=== PATIENT | female | born 1990 | race African-American/Black ===

== ENCOUNTER 2017-07-26 21:36 | Emergency (ER) | payer SELFPAY ==
[2017-07-26 21:48] VITALS: BMI 43.0
--- NOTE | 2017-07-26 22:37 | PDOC ---
History of Present Illness - General Chief Complaint: Vaginal Bleeding Stated Complaint: CRAMPS Time Seen by Provider: 07/26/17 22:05 - History of Present Illness Initial Comments: 07/26/17 22:38 27F [id number] last day of menstrual period 06/29/17 presents with bilateral lower abdominal cramping pain 7/10 radiating to the groinvaginal bleeding since this morning, "not enough to fill a pad" present mostly when she wipes but increasing in volume. Used [id number] tests on Sunday and Sunday , both positive. Usually gets OBGYN care at [facility] at [facility]. Not on any contraceptive. 2 living children vaginal births, 1 ectopic 3 miscarriages 1 voluntary 07/26/17 23:25 07/26/17 23:40 07/26/17 23:55 Past History - Past Medical History Allergies/Adverse Reactions: Allergies Allergy/AdvReac Type Severity Reaction Status Date / Time No Known Allergies Allergy Verified 07/26/17 21:48 Home Medications: Ambulatory Orders NK [No Known Home Medication] 07/26/17 Asthma: Yes ( Childhood, resolved with puberty) COPD: No - Reproductive History (#): 5 Para: 2 Ectopic : Yes - Suicide/Smoking/Psychosocial Hx Smoking Status: No Smoking History: Never smoked Have you smoked in the past 12 months: No Number of Cigarettes Smoked Daily: 0 Information on smoking cessation initiated: No Hx Alcohol Use: No Drug/Substance Use Hx: No Substance Use Type: None Review of Systems - Review of Systems Able to Perform ROS?: Yes Is the patient limited Qatari proficient: No Constitutional: No: Symptoms Reported HEENTM: No: Symptoms Reported Respiratory: No: Symptoms reported Cardiac (ROS): No: Symptoms Reported ABD/GI: Yes: See HPI, Abdominal cramping. No: Abdominal Distended, Rectal Bleeding, Vomiting, Indigestion : No: Symptoms Reported Musculoskeletal: No: Symptoms Reported Integumentary: No: Symptoms Reported Neurological: No: Symptoms reported Endocrine: No: Symptoms Reported *Physical Exam - Vital Signs Last Vital Signs Temp Pulse Resp BP Pulse Ox 98.7 F 118 H 18 125/76 100 07/26/17 21:45 07/26/17 21:45 07/26/17 21:45 07/26/17 21:45 07/26/17 21:45 - Physical Exam General Appearance: Yes: Nourished, Appropriately Dressed. No: Apparent Distress HEENT: positive: EOMI, RAUL, Normal ENT Inspection Neck: negative: Tender Respiratory/Chest: positive: Lungs Clear, Normal Breath Sounds. negative: Chest Tender Cardiovascular: positive: Regular Rhythm, S1, S2, Tachycardia Gastrointestinal/Abdominal: positive: Normal Bowel Sounds, Tender, Flat, Soft Extremity: positive: Normal Capillary Refill Neurologic: positive: card cutter II-XII NML intact, Fully Oriented, Alert, Normal Mood/ Affect, Normal Response, Motor Strength 11/24 ED Treatment Course - LABORATORY CBC & Chemistry Diagram: 07/26/17 22:50 07/26/17 22:50 Medical Decision Making - Medical Decision Making 07/26/17 23:39 29 3weeks and 2 days . Will evaluate betaHCG and TVUS. Basic labs. 07/26/17 23:51 Negative beta hcg wehite count 15.2 TVUS for evaluation of pain/bleed -> negative for product of conception, masses. No ovarian torsion. Normal US 07/27/17 01:13 Patient now pain-free. This was likely a Complete . Patient advised and ok to be discharged *DC/Admit/Observation/Transfer Diagnosis at time of Disposition: Complete - Discharge Dispostion Disposition: HOME Admit: No - Referrals Referrals: Sheila Kamara MD [Primary Care Provider] - - Patient Instructions Printed Discharge Instructions: DI for Miscarriage, Dealing With Miscarriage Additional Instructions: Please follow up with your OBGYN at the [facility] within 3-4 days. Come back to the ER for any new, worsening or concerning symptom. - Post Discharge Activity
[2017-07-26 22:55] LABS: BASO % 0.7 % (0-2.0); EOS % 0.5 % (0-4.5); HEMATOCRIT 40.4 % (32.4-45.2); HEMOGLOBIN 13.2 GM/dL (10.7-15.3); LYMPH % 15.1 % (8-40); MCH 29.8 pg (25.7-33.7); MCHC 32.8 g/dl (32.0-36.0); MEAN CELL VOLUME 90.9 fl (80-96); MEAN PLT VOLUME 8.2 fl (7.5-11.1); MONO % 4.6 % (3.8-10.2); NEUT % 79.1 % (42.8-82.8); PLATELET COUNT 343 K/MM3 (134-434); RBC 4.44 M/mm3 (3.60-5.2); RDW 14.6 % (11.6-15.6); WHITE BLOOD COUNT 15.7 K/mm3 (4.0-10.0)
[2017-07-26 23:02] LABS: URINE APPEARANCE CLOUDY; URINE BILIRUBIN NEGATIVE (NEGATIVE); URINE BLOOD 3+ (NEGATIVE); URINE COLOR YELLOW; URINE GLUCOSE (UA) NEGATIVE (NEGATIVE); URINE KETONE TRACE (NEGATIVE); URINE NITRITE NEGATIVE (NEGATIVE); URINE UROBILINOGEN NEGATIVE mg/dL (0.2-1.0)
--- NOTE | 2017-07-26 23:10 | PDOC ---
Attending Attestation - HPI HPI: 07/26/17 23:14 The patient is a 27 year old female who is A4, LMP 06/29/17 approximately 3 weeks by at home test, who presents to the ED complaining of approximately 1 day of vaginal bleeding. No fever or chills. No nausea, vomiting , or diarrhea. - Physicial Exam PE: 07/26/17 23:53 GENERAL: The child is awake, alert, and appropriately interactive. EYES: The pupils are equal, round, and reactive to light, with clear, conjunctiva. NOSE: The nose is clear without discharge. EARS: The ear canals and tympanic membranes are normal. THROAT: The oropharynx is clear without erythema or exudates. The mucous membranes are moist. NECK: The neck is supple without adenopathy or meningismus. CHEST: The lungs are clear without crackles, or wheezes. HEART: Heart is regular rhythm, with normal S1 and S2, no murmurs. ABDOMEN: The abdomen is soft and nontender with normal bowel sounds. There is no organomegaly and no mass. There is no guarding or rebound. EXTREMITIES: Extremities are normal. NEURO: Behavior is normal for age. Tone is normal. SKIN: Skin is unremarkable without rash or swelling. There is no bruising, and there are no other signs of injury. - Medical Decision Making 07/26/17 23:19 Documentation prepared by Lindsey Faye, acting as medical tech for Fredrick Rosales DO. <Lindsey Faye - Last Filed: 07/26/17 23:51> - Resident Resident Name: Oliverio Lima - ED Attending Attestation I have performed the following: I have examined & evaluated the patient, The case was reviewed & discussed with the resident, I agree w/resident's findings & plan, Exceptions are as noted - Medical Decision Making 07/26/17 23:54 Pt with negative BHcG. Will have transvaginal US to r/o pelvic pathology <Fredrick Rosales - Last Filed: 07/26/17 23:55>
[2017-07-26 23:13] LABS: URINE LEUK ESTERASE 2+ (NEGATIVE); URINE PROTEIN 2+ (NEGATIVE)
[2017-07-26 23:23] LABS: ALBUMIN 3.7 g/dl (3.4-5.0); ANION GAP 7 (8-16); BLOOD UREA NITROGEN 13 mg/dL (7-18); CHLORIDE 105 mmol/L (98-107); CO2 29 mmol/L (21-32); CREATININE 0.9 mg/dL (0.55-1.02); GLUCOSE,RANDOM 108 mg/dL (74-106); POTASSIUM 3.9 mmol/L (3.5-5.1); SGOT/AST 11 U/L (15-37); SGPT/ALT 15 U/L (12-78); SODIUM 141 mmol/L (136-145)
[2017-07-26 23:27] LABS: ALK PHOS 65 U/L (45-117); BILIRUBIN,TOTAL 0.2 mg/dL (0.2-1.0); TOT PROT 8.1 g/dl (6.4-8.2)
[2017-07-27] MEDS ORDERED: LIDOCAINE 1%/EPI 1:100000 (20 ML MULTI DOSE VIAL) ONE (00:58)
[2017-07-27] MEDS ORDERED: LIDOCAINE HCL 1%, 10 MG/ML (20ML VIAL) ONE (01:03)
[2017-07-27 01:39] VITALS: BP 125/74; PULSE 96; TEMP 98.4
== END 2017-07-27 01:40 | disposition home or self-care (01) ==
LOC: JER 21:36
DX: O26.891 Other specified pregnancy related conditions, first trimester (principal); O03.9 Complete or unspecified spontaneous abortion without complication
CPT/HCPCS: 36415; 76830-TC; 80053; 81003; 81015; 84702; 85025; 99282-25

== ENCOUNTER 2020-11-10 08:57 | Emergency (ER) | payer OTHER ==
[2020-11-10 09:05] VITALS: BP 129/79; PULSE 105; TEMP 97.9; BMI 47.0
== END 2020-11-10 09:58 | disposition home or self-care (01) ==
LOC: JER 08:57 → JERFT 08:57
DX: S63.601A Unspecified sprain of right thumb, initial encounter (principal); L30.8 Other specified dermatitis
CPT/HCPCS: 73140-TC-RT-FY; 99283-25

== ENCOUNTER 2021-08-23 04:32 | Emergency (ER) | payer OTHER ==
[2021-08-23 04:45] VITALS: BP 110/73; PULSE 72; TEMP 97.9; BMI 46.8
[2021-08-23] MEDS ORDERED: DEXAMETHASONE 4 MG TABLET (FP) PO ONE (05:39)
[2021-08-23] MEDS ORDERED: DEXAMETHASONE 4 MG TABLET (FP) ONE (05:42)
== END 2021-08-23 05:51 | disposition home or self-care (01) ==
LOC: JER 04:32
DX: R09.81 Nasal congestion (principal); J02.9 Acute pharyngitis, unspecified; J06.9 Acute upper respiratory infection, unspecified
CPT/HCPCS: 99283-25; C9803; U0003; U0005

== ENCOUNTER 2022-08-19 09:41 | Emergency (ER) | payer OTHER ==
[2022-08-19 09:49] VITALS: BP 122/85; PULSE 87; RESP 18; TEMP 98; BMI 46.8
[2022-08-19] MEDS ORDERED: IBUPROFEN 600 MG TABLET (FP) PO ONE ×3 (11:35→11:45)
[2022-08-19] MEDS ORDERED: ACETAMINOPHEN 500 MG TABLET (FP) PO ONE ×2 (11:35→11:43)
[2022-08-19] MEDS ORDERED: ACETAMINOPHEN 500 MG TABLET (FP) ONE (11:45)
== END 2022-08-19 12:49 | disposition home or self-care (01) ==
LOC: JER 09:41 → JERFT 09:41
DX: S93.402A Sprain of unspecified ligament of left ankle, initial encounter (principal); W18.42XA Slipping, tripping and stumbling without falling due to stepping into hole or opening, initial encounter
CPT/HCPCS: 73610-TC-LT-FY; 73630-TC-LT; 99283-25